=== PATIENT | female | born 1985 | race Caucasian/White ===

== ENCOUNTER 2019-06-01 14:45 | Outpatient (RCR) | payer BC ==
[~2019-06-01 14:45] MED LIST: MOTRIN 800800 MG/TAB PO; PERCOCET 325 MG1 TA2 PO; PRENATAL1 TA7 PO
== END 2019-06-12 09:40 | disposition home or self-care (01) ==
LOC: MKS.ESL.PT 14:45
DX: N39.3 Stress incontinence (female) (male) (principal)